=== PATIENT | female | born 1995 | race Caucasian/White ===

== ENCOUNTER 2021-07-28 08:00 | Outpatient (CLI) | payer OTHER, MEDICAID ==
[2021-07-28 20:49] LABS: BASOPHILS # (AUTO) 0.1 10^3/uL (0.0-0.1); BASOPHILS % (AUTO) 0.3 %; EOSINOPHILS # (AUTO) 0.2 10^3/uL (0.0-0.7); EOSINOPHILS % (AUTO) 1.1 %; HCT - HEMATOCRIT 37.3 % (37.0-47.0); HGB - HEMOGLOBIN 12.7 g/dL (12.0-16.0); LYMPHOCYTES # (AUTO) 1.9 10^3/uL (1.5-3.5); MEAN CORPUSCULAR HEMOGLOBIN 31.8 pg (27.0-31.0); MEAN CORPUSCULAR VOLUME 93.5 fL (81.0-99.0); MEAN PLATELET VOLUME 11.6 fL (7.9-10.8); NEUTROPHILS # (AUTO) 11.6 10^3/uL (1.5-6.6); NEUTROPHILS % (AUTO) 78.1 %; PLT - PLATELET COUNT 229 10^3/uL (130-450); RED BLOOD COUNT 3.99 10^6/uL (4.20-5.40); RED CELL DISTRIBUTION WIDTH 12.5 % (12.0-15.0); WHITE BLOOD COUNT 14.9 x10^3/uL (4.8-10.8)
[2021-07-28 21:05] LABS: ALBUMIN 3.7 g/dL (3.2-5.5); ALBUMIN/GLOBULIN RATIO 1.3 (1.0-2.2); ALKALINE PHOSPHATASE 48 IU/L (42-121); ALT ALANINE AMINOTRANSFERASE 17 IU/L (10-60); AST ASPARTATE AMINOTRANSFERASE 16 IU/L (10-42); BILIRUBIN,TOTAL 0.5 mg/dL (0.2-1.0); BUN - BLOOD UREA NITROGEN 25 mg/dL (6-20); CALCIUM 9.6 mg/dL (8.5-10.3); CARBON DIOXIDE - CO2 21 mmol/L (21-32); CHLORIDE 105 mmol/L (101-111); CREATININE 1.8 mg/dL (0.4-1.0); CRP - C-REACTIVE PROTEIN < 1.0 mg/dL (0-1.0); GFR - MDRD 34 (>89); GLUCOSE 95 mg/dL (70-100); POTASSIUM 3.8 mmol/L (3.5-5.0); SODIUM 134 mmol/L (135-145); TOTAL PROTEIN 6.5 g/dL (6.7-8.2)
== END 2021-07-29 13:53 | disposition home or self-care (01) ==
LOC: LAB.N 08:00
PROVIDERS: ATTEND Registered Nurse
DX: R10.84 Generalized abdominal pain (principal); R11.10 Vomiting, unspecified; N12 Tubulo-interstitial nephritis, not specified as acute or chronic
CPT/HCPCS: 36415; 80053; 85025; 86140; 87086

== ENCOUNTER 2022-09-06 16:55 | Outpatient (CLI) | payer OTHER, MEDICARE, MEDICAID ==
[2022-09-06 20:29] LABS: BASOPHILS % (AUTO) 0.4 %; EOSINOPHILS # (AUTO) 0.1 10^3/uL (0.0-0.7); EOSINOPHILS % (AUTO) 1.3 %; HCT - HEMATOCRIT 40.3 % (37.0-47.0); HGB - HEMOGLOBIN 13.5 g/dL (12.0-16.0); LYMPHOCYTES # (AUTO) 2.6 10^3/uL (1.5-3.5); LYMPHOCYTES % (AUTO) 33.9 %; MEAN CORPUSCULAR HGB CONC 33.5 g/dL (32.0-36.0); MEAN CORPUSCULAR VOLUME 92.6 fL (81.0-99.0); MEAN PLATELET VOLUME 11.8 fL (7.9-10.8); MONOCYTES # (AUTO) 0.5 10^3/uL (0.0-1.0); MONOCYTES % (AUTO) 5.8 %; NEUTROPHILS # (AUTO) 4.5 10^3/uL (1.5-6.6); NEUTROPHILS % (AUTO) 58.3 %; PLT - PLATELET COUNT 237 10^3/uL (130-450); RED BLOOD COUNT 4.35 10^6/uL (4.20-5.40); RED CELL DISTRIBUTION WIDTH 12.2 % (12.0-15.0); WHITE BLOOD COUNT 7.8 x10^3/uL (4.8-10.8)
[2022-09-06 20:53] LABS: CREATININE 0.8 mg/dL (0.4-1.0); POTASSIUM 4.1 mmol/L (3.5-5.0)
[2022-09-08 21:07] LABS: KAPPA FREE LT CHAINS SERUM 8.7 mg/L (3.3-19.4); KAPPA/LAMBDA RATIO SERUM 1.09 (0.26-1.65)
== END 2022-09-06 16:56 | disposition home or self-care (01) ==
LOC: LAB.N 16:55
PROVIDERS: ATTEND Internal Medicine Hematology & Oncology
DX: R82.90 Unspecified abnormal findings in urine (principal)
CPT/HCPCS: 36415; 80048; 81599; 83521; 84155; 84165; 85025

== ENCOUNTER 2022-10-11 13:30 | Outpatient (CLI) | payer OTHER, MEDICARE, MEDICAID ==
[2022-10-11 18:04] LABS: CALCIUM 9.6 mg/dL (8.5-10.3); CREATININE 0.7 mg/dL (0.6-1.3)
== END 2022-10-11 13:45 | disposition home or self-care (01) ==
LOC: LAB.N 13:30
PROVIDERS: ATTEND Physician Assistant Medical
DX: R30.0 Dysuria (principal); R35.0 Frequency of micturition
CPT/HCPCS: 36415; 80048; 87077; 87086

== ENCOUNTER 2022-11-09 10:12 | Emergency (ER) | payer OTHER, MEDICARE, MEDICAID ==
[2022-11-09 10:32] VITALS: O2SAT 98
--- OUTSIDE RECORDS SUMMARY | 2022-11-09 10:45 | EXTERNAL MEDICAL SUMMARY RPT | Continuity of Care Document ---
Author Name Unknown Address [address] [place] [address] Phone Organization [facility] Address [address] [place] [address] Phone Care Team Providers Care Certified Registered Nurse Practitioner Name Role Phone Rebecca Ayers Unavailable Unavailable Allergies and Intolerances date description facility reaction severity (no date) Penicillins [facility] (no reaction) (no s everity) (no date) amoxicillin [facility] (no reaction) (no s everity) (no date) azithromycin [facility] (no reaction) (no severity) Problems date description facility 2022-08-30 00:00 Bee sting reaction [facility]olo Results/Labs test date facility value unit notes Social History date description facility 2022-08-30 00:00 Never smoked tobacco (finding) [facility] Vital Signs date measurement value units 2022-08-30 00:00 BMI 45.7 kg/m2 2022-08-30 00:00 BP_diastolic 66 mmHg 2022-08-30 00:00 BP_systolic 103 mmHg 2022-08-30 00:00 heart_rate 92 /min 2022-08-30 00:00 height_metric 157.48 cm 2022-08-30 00:00 height_standard 62 in 2022-08-30 00:00 o2_saturation 97 % 2022-08-30 00:00 respiration_rate 17 /min 2022-08-30 00:00 temperature_metric 36.89 C 2022-08-30 00:00 temperature_standard 98.4 F 2022-08-30 00:00 weight_metric 113.39 kg 2022-08-30 00:00 weight_standard 249.98 lb
[2022-11-09] MEDS ORDERED: diphenhydrAMINE INJ 50 MG/ML VIAL IM STA (10:46)
[2022-11-09] MEDS ORDERED: DEXAMETHASONE 10 MG/ML VIAL PO STA (10:46)
[2022-11-09] MEDS ORDERED: CHERRY SYRUP 10 ML UDC PO ONE (10:46)
--- NOTE | 2022-11-09 11:26 | ED Physician Documentation ---
History of Present Illness - Stated complaint Stated Complaint: BEE STING, LOW HR - Chief complaint Chief Complaint: Allergic Rx - History obtained from History obtained from: Patient - History of Present Illness Timing: Today - Additonal information Additional information: 27-year-old Dominique Reid has a history of hymenoptera allergy and she was at the the refuse disposal area today when she was stung by bees in her arm and on her chest. She has a EpiPen and use this immediately she did not have Benadryl with her. She has come to the emergency department now for further treatment. She is denying shortness of breath or a feeling of her throat closing. She has some redness associated with where the bee stings are. Review of Systems Constitutional: denies: Fever Eyes: denies: Decreased vision Ears: denies: Ear pain Nose: denies: Rhinorrhea / runny nose, Congestion Throat: denies: Sore throat Cardiac: denies: Chest pain / pressure Respiratory: denies: Dyspnea, Cough GI: denies: Abdominal Pain, Vomiting, Diarrhea PD PAST MEDICAL HISTORY - Past Medical History Cardiovascular: Other Musculoskeletal: Fibromyalgia, Fatigue - Past Surgical History Past Surgical History: Yes HEENT: Tonsil/Adenoidectomy - Present Medications Home Medications: Ambulatory Orders Medication Instructions Recorded Confirmed Propranolol [Inderal] 60 mg ORAL DAILY 09/29/13 09/21/22 Azithromycin [Zithromax] 250 mg PO DAILY #4 tablet 08/09/14 09/21/22 Immun Glob G(IgG)/Pro/Iga 0-50 15 gm SQ UD 09/21/22 09/21/22 [Hizentra 4 Gram/20 ml Syringe] Methylphenidate [Ritalin] 36 mg PO DAILY 09/21/22 09/21/22 Omeprazole 40 mg PO DAILY 09/21/22 09/21/22 Prazosin [Minipress] 2 mg PO DAILY 09/21/22 09/21/22 Rizatriptan Benzoate [Rizatriptan] 5 mg PO UD 09/21/22 09/21/22 Topiramate [Topamax] 25 mg PO BID 09/21/22 09/21/22 busPIRone [Buspar] 15 mg PO UD 09/21/22 09/21/22 traMADol [Ultram] 50 mg PO UD 09/21/22 09/21/22 - Allergies Allergies/Adverse Reactions: Allergies Allergy/AdvReac Type Severity Reaction Status Date / Time azithromycin Allergy Hives Verified 11/09/22 10:28 bee venom protein (honey bee) Allergy Anaphylaxis Verified 11/09/22 10:28 Penicillins Allergy Rash Verified 09/21/22 08:07 - Social History Does the pt smoke?: No Smoking Status: Never smoker Does the pt drink ETOH?: Yes Does the pt have substance abuse?: Yes - Immunizations Immunizations are current?: Yes PD ED PE NORMAL - Vitals Vital signs reviewed: Yes (Normal) - General General: Alert and oriented X 3, No acute distress, Well developed/nourished - HEENT HEENT: Atraumatic, PERRL, EOMI - Neck Neck: Supple, no meningeal sign, No bony TTP - Cardiac Cardiac: RRR, No murmur - Respiratory Respiratory: No respiratory distress, Clear bilaterally - Abdomen Abdomen: Normal bowel sounds, Soft, Non tender, Non distended, No organomegaly - Back Back: No CVA TTP, No spinal TTP - Derm Derm: Normal color, Warm and dry, No rash - Extremities Extremities: No deformity, No edema, Other (A bee sting to the left forearm and the right anterior chest wall are present. There is mild erythema about 2 cm in diameter) - Neuro Neuro: Alert and oriented X 3, rip sawyer 2-12 intact, No motor deficit, No sensory deficit, Normal speech Eye Opening: Spontaneous Motor: Obeys Commands Verbal: Oriented GCS Score: 15 - Psych Psych: Normal mood, Normal affect Results - Vitals Vitals: Vital Signs - 24 hr 11/09/22 11/09/22 10:25 10:57 Temperature 36.0 C L 36.5 C Heart Rate 47 L 60 Respiratory 21 16 Rate Blood Pressure 124/87 H 123/72 O2 Saturation 98 98 Oxygen O2 Source Room air PD Medical Decision Making - ED course Complexity details: reviewed old records, reviewed results, re-evaluated patient, d/w patient ED course: 27-year-old female with a prior history of reaction to bee sting has been stung twice today she has used her EpiPen she did not have Benadryl here in the emergency department she is given IM Benadryl 25 mg and 10 mg of dexamethasone orally. She feels well she is monitored in the emergency department and discharged to home with instructions to take Benadryl for the next 2 days. Departure - Departure Disposition: 01 Home, Self Care Clinical Impression: Bee sting reaction Qualifiers: Encounter type: initial encounter Injury intent: accidental or unintentional Qualified Code(s): T63.441A - Toxic effect of venom of bees, accidental (unintentional), initial encounter Condition: Stable Instructions: ED Bite Sting Insect Gen Allergic React Follow-Up: Rebecca Ayers PA [Primary Care Provider] - Comments: Dominique, today it looks like you have been stung by a bee and we have given you additional treatment on top of your EpiPen to include dexamethasone and Benadryl. It looks like the reaction you are having has been abated. Our expectation is continued improvement. The recommendation is to take Benadryl 25 mg every 6 hours for the next 2 days.
[2022-11-09 11:44] VITALS: BP 111/78
== END 2022-11-09 11:38 | disposition home or self-care (01) ==
LOC: ED 10:12
DX: T63.441A Toxic effect of venom of bees, accidental (unintentional), initial encounter (principal)
CPT/HCPCS: 96372; 99283; A9270; J1200